=== PATIENT | female | born 1975 | race Caucasian/White ===

== ENCOUNTER → 2017-06-28 | Outpatient (CLI) | payer BC, OTHER ==
[2015-05-17 11:53] VITALS: BMI 28.2
[~2017-06-28] MED LIST: LACT1CAP74 PO; LOTE5GEL OP; MULT1TAB54 PO
[2017-06-28 09:19] LABS: PLATELET COUNT, AUTOMATED 571 K/uL (150-450)
[2017-06-28 10:39] LABS: LDL CHOLESTEROL 132 mg/dl
--- NOTE | 2017-06-28 15:08 | RADIOLOGY IMAGING REPORT ---
FACILITY: [facility] - [place], [place] PATIENT NAME: ELLIOT CROCKETT : [id number] MR: [id number] V: [id number] EXAM DATE: [id number] ORDERING PHYSICIAN: HANNAH CASTANO TECHNOLOGIST: Nadira Vance PROCEDURE:BILATERAL DIGITAL SCREENING MAMMOGRAM WITH CAD ASSISTED INTERPRETATION & 3D TOMOSYNTHESIS COMPARISON:None. INDICATIONS:baseline screening FINDINGS: Mildly heterogeneous fibroglandular tissue is seen throughout the breasts. There is a vague area of architectural distortion in the approximate 12 o'clock position of the Right breast for which Spot compression view is recommended. There is a nodular density in the upper outer quadrant of the Right breast as well for which Right breast Ultrasound is recommended. There is a vague nodular density in the lateral portion Left breast Zone 3 for which Spot compression view is recommended. DIAGNOSTIC CATEGORY 0--INCOMPLETE: NEED ADDITIONAL IMAGING EVALUATION. RECOMMENDATIONS: ADDITIONAL MAMMOGRAPHIC VIEWS REQUIRED: BILATERAL BREASTS. ULTRASOUND: RIGHT BREAST. IMPRESSION: BIRADS 0: Incomplete Spot compression views in both breasts as described above and Right breast Ultrasound is recommended for further evaluation. Dictated by: Martita Mckeon M.D. on 06/28/2017 at 11:17 Transcribed by: NIC on 06/28/2017 at 13:13 Approved by: Martita Mckeon M.D. on 06/28/2017 at 15:07 [facility]
== END ==
LOC: MAMO 03:25
PROVIDERS: ATTEND Physician Assistant
DX: Z12.31 Encounter for screening mammogram for malignant neoplasm of breast (principal); R92.2 Inconclusive mammogram; R53.83 Other fatigue; R73.01 Impaired fasting glucose; E78.4 Other hyperlipidemia
CPT/HCPCS: 36415; 77063; 77067; 82040; 82247; 82310; 82374; 82435; 82465; 82565; 82947; 83036; 83718; 84075; 84132; 84155; 84295; 84443; 84450; 84460; 84478; 84520; 85025

== ENCOUNTER → 2017-07-01 | Outpatient (CLI) | payer OTHER ==
[2015-05-17 11:53] VITALS: BMI 28.2
[2017-07-01 09:43] LABS: LDL CHOLESTEROL 126 mg/dl
--- NOTE | 2017-07-01 18:12 | RADIOLOGY IMAGING REPORT ---
FACILITY: [facility] PATIENT NAME: ELLIOT CROCKETT : [id number] MR: [id number] V: [id number] EXAM DATE: [id number] ORDERING PHYSICIAN: HANNAH CASTANO TECHNOLOGIST: Renuka Kate PROCEDURE:BILATERAL DIAGNOSTIC DIGITAL MAMMOGRAM WITH CAD ASSISTED INTERPRETATION & 3D TOMOSYNTHESIS COMPARISON:None. INDICATIONS:FURTHER EVAL FINDINGS: The patient returns for Spot compression views in the Right CC and MLO projection Left CC and Left XCC positions. The Spot compression view has revealed the bilateral areas of architectural distortion to be compressible and apparently represented summation shadows. There was no demonstration of malignant appearing mass or calcification in either breast. DIAGNOSTIC CATEGORY 2--BENIGN FINDING. RECOMMENDATIONS: ROUTINE MAMMOGRAM AND CLINICAL EVALUATION. IMPRESSION: BIRADS 2: Benign finding No significant abnormality is seen. Dictated by: Martita Mckeon M.D. on 07/01/2017 at 16:09 Transcribed by: NIC on 07/01/2017 at 16:19 Approved by: Martita Mckeon M.D. on 07/01/2017 at 18:11 [facility]
--- NOTE | 2017-07-02 08:19 | RADIOLOGY IMAGING REPORT ---
FACILITY: [facility] PATIENT NAME: ELLIOT CROCKETT : [id number] MR: [id number] V: [id number] EXAM DATE: [id number] ORDERING PHYSICIAN: HANNAH CASTANO TECHNOLOGIST: Milana Huang PROCEDURE:US RIGHT BREAST COMPLETE COMPARISON:None. INDICATIONS:FURTHER EVAL FINDINGS: In the 10 o'clock position of the Right breast approximately 10cm from the nipple is a fatty replaced lymph node measuring 1.5cm in length. In the 10 o'clock position Right breast 9cm from the nipple is a fatty replaced lymph node measuring 9mm in length. In the Right axilla there is a fatty replaced lymph node measuring 1.9cm in length. The inch mammary lymph nodes likely account for the mammographic findings. DIAGNOSTIC CATEGORY 2--BENIGN FINDING. RECOMMENDATIONS: ROUTINE MAMMOGRAM AND CLINICAL EVALUATION. IMPRESSION: BIRADS 2: Benign finding There are 2 inch mammary lymph nodes in the 10 o'clock position Right breast and 1 Right axillary lymph node likely accounting for the mammographic findings. Dictated by: Martita Mckeon M.D. on 07/01/2017 at 16:07 Transcribed by: NIC on 07/02/2017 at 8:10 Approved by: Martita Mckeon M.D. on 07/02/2017 at 8:18 [facility]
== END ==
LOC: MAMO 00:53
PROVIDERS: ATTEND Physician Assistant
DX: R92.2 Inconclusive mammogram (principal); E78.00 Pure hypercholesterolemia, unspecified
CPT/HCPCS: 36415; 77062; 77066; 82172; 82465; 83695; 83701; 83718; 84478; 86140

== ENCOUNTER → 2017-07-31 | Outpatient (REF) | payer OTHER ==
[2015-05-17 11:53] VITALS: BMI 28.2
== END ==
LOC: ZZSTITCHES 17:36
PROVIDERS: ATTEND Physician Assistant
DX: J02.9 Acute pharyngitis, unspecified (principal)
CPT/HCPCS: 87070

== ENCOUNTER 2017-11-26 10:37 | Emergency (ER) | payer BC, OTHER ==
[2015-05-17 11:53] VITALS: Wt 54.0 kg
[2017-11-26] MEDS ORDERED: ONDANSETRON 4 MG/2 ML VIAL ONE (10:50)
[2017-11-26] MEDS ORDERED: MORPHINE 4 MG/ML SDV IVP ONE ×2 (11:05→11:45)
[2017-11-26] MEDS ORDERED: NS(*) 0.9% 1000 ML BAG 1,000 ML IV ONE (11:05)
[2017-11-26 11:39] LABS: PLATELET COUNT, AUTOMATED 646 K/uL (150-450)
--- NOTE | 2017-11-26 13:09 | RADIOLOGY IMAGING REPORT ---
FACILITY: [facility] - [place] PATIENT NAME: Sanjuana Salinas : 1975 MR: [id number] V: [id number] EXAM DATE: ORDERING PHYSICIAN: GLENROY MISTRY TECHNOLOGIST: [place] [facility] [place] Sanju[place] Sal[place] : 1975 Visit/Account:[id number] Date of Sevice: 11/26/2017 ABDOMEN/PELVIS W/O CONTRAST HISTORY: hx pancreatitis, s/p whipple, epigastric pain TECHNIQUE: Axial images acquired through the abdomen/pelvis. Coronal and sagittal reformatting also performed. No IV contrast administered. Dose Lowering Technique One of the following dose optimization techniques was utilized in the performance of this exam: Autom ated exposure control; adjustment of the mA and/or kV according to the patient's size; or use of an i terative reconstruction technique. Specific details can be referenced in the facility's radiology C T exam operational policy. COMPARISON: MR the abdomen March 21, 2015 FINDINGS: Visualized lung bases: There is minimal linear scarring versus atelectasis in the inferior lateral l ingula Hepatobiliary: There are postsurgical changes from a cholecystectomy. 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 Vessels/spaces/nodes: There multiple iliac lymph nodes bilaterally. A field sales representative right common i liac lymph node measures 1.3 x 0.7 cm. A field sales representative right internal iliac lymph node measures 9 x 9 mm. A field sales representative right external iliac lymph node measures 1.6 x 0.8 cm Section [employer] Activities Clerk left common iliac lymph node measures 7 x 8 mm. . A field sales representative left external stephanie ac lymph node measures 1.3 x 0.9 cm. Bones/soft tissues: Negative. Additional findings: None pertinent. IMPRESSION: Since the previous study there is been resection of the distal body and tail the pancreas in addition to the spleen. There is postsurgical changes from a cholecystectomy Mild hepatomegaly 2 mm nonobstructing calculus lower pole calyx of the left kidney There are multiple iliac lymph nodes bilaterally. Most appear relatively small which may be reactive although clinical correlation needed Report Dictated By: Martita Mckeon MD at 11/26/2017 12:32 PM Report E-Signed By: Martita Mckeon MD at 11/26/2017 1:05 PM WSN:[id number]
--- NOTE | 2017-11-26 13:36 | ER Report ---
History and Physical Time Seen By MD: 10:45 Hx. 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 She presents after a trip to [facility] last week during which she states she ate out of her normal diet. She has had ongoing abdominal discomfort since this time located in the epigastric region. She states that symptoms became worse overnight during which she developed vomiting and has been unable to keep by mouth down at this point. Patient complains of severe epigastric pain that radiates to the back and feels like her prior pancreatitis. She took an oxycodone last night with some relief. REVIEW OF SYSTEMS: Constitutional: No fever, no chills. Eyes: No discharge. ENT: No sore throat. Cardiovascular: No chest pain, no palpitations. Respiratory: No cough, no shortness of breath. Gastrointestinal: above Genitourinary: no dysuria Musculoskeletal: abd pain radiates to back Skin: No rashes. Neurological: No headache. Remainder of the 14 system rev: Yes Allergies: Coded Allergies: diphenhydramine (Verified Allergy, Severe, ANAPHYLAXIS, 11/26/17) anaphlaxis hydromorphone (Verified Adverse Reaction, Severe, NAUSEA/VOMITING, 11/26/17) Uncoded Allergies: IV CONTRAST (Allergy, Mild, NAUSEA/VOMITING, 11/26/17) Home Meds Active Scripts Omeprazole (OMEPRAZOLE) 20 Mg Capsule.dr, 1 CAP PO BID for 30 Days, #60 CAP Prov:GLENROY MISTRY MD 11/26/17 Discontinued Reported Medications Lactobacillus Rhamnosus Gg (CULTURELLE) 1 Each Capsule, 1 EACH PO DAILY, CAPSULE 05/16/15 Multivitamin (MULTI-VITAMIN DAILY) 1 Each Tablet, 1 EACH PO 05/16/15 Loteprednol Etabonate (LOTEMAX) 5 Gm Gel..gram., 5 GM OP BIWEEKLY 03/25/15 Hx Smoking: Yes (3 CIGARETTES PER WEEK) Smoking Status: Current: Every Day Smoker Hx Substance Use Disorder: No Constitutional Vital Sign - Last 24 Hours 11/26/17 11/26/17 11/26/17 11/26/17 10:37 10:41 10:42 11:07 Temp 97.8 Pulse 99 99 82 Resp 18 B/P (MAP) 138/99 (112) 138/99 Pulse Ox 94 94 97 O2 Delivery Room Air Room Air Room Air 11/26/17 11/26/17 11/26/17 11/26/17 11:13 11:30 11:34 11:39 Pulse 88 71 B/P (MAP) 112/74 (87) 123/85 (98) Pulse Ox 93 93 O2 Delivery Room Air Room Air 11/26/17 11/26/17 11/26/17 11/26/17 12:06 12:09 12:30 12:44 Pulse 92 79 B/P (MAP) 103/71 (82) 109/59 (76) Pulse Ox 96 96 O2 Delivery Room Air Room Air 11/26/17 11/26/17 11/26/17 11/26/17 13:00 13:30 13:35 13:40 Pulse 79 71 B/P (MAP) 110/83 (92) 122/99 (107) Pulse Ox 94 95 O2 Delivery Room Air Room Air 11/26/17 11/26/17 11/26/17 11/26/17 14:00 14:10 14:15 14:30 Pulse 78 76 B/P (MAP) 110/58 (75) 99/67 (78) Pulse Ox 98 98 O2 Delivery Room Air Room Air 11/26/17 11/26/17 11/26/17 11/26/17 14:45 15:00 15:15 15:26 Pulse 68 66 77 B/P (MAP) 112/78 (89) Pulse Ox 94 94 94 O2 Delivery Room Air Room Air Room Air Physical Exam General Appearance: [The patient is alert, has no immediate need for airway protection and no signs of toxicity.] [ she is tearful, standing, and hunched over gurney] Eyes: Pupils equal and round no pallor or injection. ENT, Mouth: Mucous membranes are moist. Respiratory: There are no retractions, lungs are clear to auscultation. Cardiovascular: Regular rate and rhythm. Gastrointestinal: Abdomen is soft and non tender, no masses, bowel sounds normal. Neurological: alert, oriented, nad Skin: Warm and dry, no rashes. Musculoskeletal: Neck is supple non tender. Extremities are nontender, nonswollen and have full range of motion. DIFFERENTIAL DIAGNOSIS: After history and physical exam differential diagnosis was considered for pancreatitis, complication of PUD, gastritis, reformed gall stone, kidney stone, hemorrhage, or other emergent etiology Medical Decision Making Data Points Result Diagram: 11/26/17 1048 11/26/17 1048 Laboratory Hematology Test 11/26/17 10:48 11/26/17 12:05 Red Blood Count 5.19 M/uL (4.17-5.56) Mean Corpuscular Volume 91.1 fL (80.0-96.0) Mean Corpuscular Hemoglobin 31.5 pg (26.0-33.0) Mean Corpuscular Hemoglobin Concent 34.5 g/dL (32.0-36.0) Red Cell Distribution Width 12.4 % (11.5-14.5) Mean Platelet Volume 8.6 fL (7.2-11.1) Neutrophils (%) (Auto) 65.2 % (39.4-72.5) Lymphocytes (%) (Auto) 27.4 % (17.6-49.6) Monocytes (%) (Auto) 6.4 % (4.1-12.4) Eosinophils (%) (Auto) 0.3 % (0.4-6.7) Basophils (%) (Auto) 0.7 % (0.3-1.4) Nucleated RBC Relative Count (auto) 0.1 /100WBC Neutrophils # (Auto) 9.0 K/uL (2.0-7.4) Lymphocytes # (Auto) 3.8 K/uL (1.3-3.6) Monocytes # (Auto) 0.9 K/uL (0.3-1.0) Eosinophils # (Auto) 0.0 K/uL (0.0-0.5) Basophils # (Auto) 0.1 K/uL (0.0-0.1) Nucleated RBC Absolute Count (auto) 0.01 K/uL Peripheral Blood Smear Yes Y/N Sodium Level 141 mmol/L (137-145) Potassium Level 4.0 mmol/L (3.5-5.0) Chloride Level 101 mmol/L (98-107) Carbon Dioxide Level 23 mmol/L (22-31) Blood Urea Nitrogen 10 mg/dl (7-18) Creatinine 0.60 mg/dl (0.52-1.04) Glomerular Filtration Rate Calc > 60.0 Random Glucose 101 mg/dl (75-110) Calcium Level 9.9 mg/dl (8.4-10.2) Total Bilirubin 1.0 mg/dl (0.2-1.3) Aspartate Amino Transf (AST/SGOT) 18 U/L (0-35) Alanine Aminotransferase (ALT/SGPT) 24 U/L (0-56) Alkaline Phosphatase 54 U/L (0-126) Total Protein 9.8 g/dl (6.3-8.2) Albumin 5.3 g/dl (3.5-5.0) Lipase 100 U/L (23-300) Urine Color Straw Urine Clarity Clear Urine pH 6.0 pH (4.8-9.5) Urine Specific [place] 1.006 Urine Protein Negative mg/dL (NEGATIVE) Urine Glucose (UA) Negative mg/dL (NEGATIVE) Urine Ketones Negative mg/dL (NEGATIVE) Urine Blood Negative (NEGATIVE) Urine Nitrite Negative (NEGATIVE) Urine Bilirubin Negative (NEGATIVE) Urine Urobilinogen Negative mg/dL (0.2-1.9) Urine Leukocyte Esterase Negative (NEGATIVE) Urine RBC None /HPF (0-2/HPF) Urine WBC <1 /HPF (0-5/HPF) Urine Squamous Epithelial Cells None /LPF (</=FEW) Urine Bacteria Few /HPF (NONE-FEW) Urine Mucus None /HPF (NONE-FEW) Urine HCG, Qualitative Negative (NEGATIVE) Chemistry Test 11/26/17 10:48 11/26/17 12:05 White Blood Count 13.9 k/uL (4.5-11.0) Red Blood Count 5.19 M/uL (4.17-5.56) Hemoglobin 16.3 g/dL (12.0-16.0) Hematocrit 47.3 % (34.0-47.0) Mean Corpuscular Volume 91.1 fL (80.0-96.0) Mean Corpuscular Hemoglobin 31.5 pg (26.0-33.0) Mean Corpuscular Hemoglobin Concent 34.5 g/dL (32.0-36.0) Red Cell Distribution Width 12.4 % (11.5-14.5) Platelet Count 646 K/uL (150-450) Mean Platelet Volume 8.6 fL (7.2-11.1) Neutrophils (%) (Auto) 65.2 % (39.4-72.5) Lymphocytes (%) (Auto) 27.4 % (17.6-49.6) Monocytes (%) (Auto) 6.4 % (4.1-12.4) Eosinophils (%) (Auto) 0.3 % (0.4-6.7) Basophils (%) (Auto) 0.7 % (0.3-1.4) Nucleated RBC Relative Count (auto) 0.1 /100WBC Neutrophils # (Auto) 9.0 K/uL (2.0-7.4) Lymphocytes # (Auto) 3.8 K/uL (1.3-3.6) Monocytes # (Auto) 0.9 K/uL (0.3-1.0) Eosinophils # (Auto) 0.0 K/uL (0.0-0.5) Basophils # (Auto) 0.1 K/uL (0.0-0.1) Nucleated RBC Absolute Count (auto) 0.01 K/uL Peripheral Blood Smear Yes Y/N Glomerular Filtration Rate Calc > 60.0 Calcium Level 9.9 mg/dl (8.4-10.2) Total Bilirubin 1.0 mg/dl (0.2-1.3) Aspartate Amino Transf (AST/SGOT) 18 U/L (0-35) Alanine Aminotransferase (ALT/SGPT) 24 U/L (0-56) Alkaline Phosphatase 54 U/L (0-126) Total Protein 9.8 g/dl (6.3-8.2) Albumin 5.3 g/dl (3.5-5.0) Lipase 100 U/L (23-300) Urine Color Straw Urine Clarity Clear Urine pH 6.0 pH (4.8-9.5) Urine Specific [place] 1.006 Urine Protein Negative mg/dL (NEGATIVE) Urine Glucose (UA) Negative mg/dL (NEGATIVE) Urine Ketones Negative mg/dL (NEGATIVE) Urine Blood Negative (NEGATIVE) Urine Nitrite Negative (NEGATIVE) Urine Bilirubin Negative (NEGATIVE) Urine Urobilinogen Negative mg/dL (0.2-1.9) Urine Leukocyte Esterase Negative (NEGATIVE) Urine RBC None /HPF (0-2/HPF) Urine WBC <1 /HPF (0-5/HPF) Urine Squamous Epithelial Cells None /LPF (</=FEW) Urine Bacteria Few /HPF (NONE-FEW) Urine Mucus None /HPF (NONE-FEW) Urine HCG, Qualitative Negative (NEGATIVE) Urinalysis Test 11/26/17 12:05 Urine Color Straw Urine Clarity Clear Urine pH 6.0 pH (4.8-9.5) Urine Specific [place] 1.006 Urine Protein Negative mg/dL (NEGATIVE) Urine Glucose (UA) Negative mg/dL (NEGATIVE) Urine Ketones Negative mg/dL (NEGATIVE) Urine Blood Negative (NEGATIVE) Urine Nitrite Negative (NEGATIVE) Urine Bilirubin Negative (NEGATIVE) Urine Urobilinogen Negative mg/dL (0.2-1.9) Urine Leukocyte Esterase Negative (NEGATIVE) Urine RBC None /HPF (0-2/HPF) Urine WBC <1 /HPF (0-5/HPF) Urine Squamous Epithelial Cells None /LPF (</=FEW) Urine Bacteria Few /HPF (NONE-FEW) Urine Mucus None /HPF (NONE-FEW) Urine HCG, Qualitative Negative (NEGATIVE) ED Course/Re-evaluation ED Course Pt presents with epigastric pain similar to prior pancreatitis, prior to whipple; pt ultimately improves after gi cocktail and given bloodwork and pt's improvement, consider gastritis/pud as potential etiology. I attempted to call pt's surgeon, Dr. Amos, but he was not available. I discussed further with pt who has significant pain relief and would like to go home at this point. As CT / labs are unremarkable for acute findings and rpt exam shows no acute abdomen, this is reasonable; will f/u with primary doctor. Pt understands strict rtn precautions. Decision to Disposition Date: Nov 26, 2017 Decision to Disposition Time: 15:15 Depart Departure Latest Vital Signs Vital Signs Date Time Temp Pulse Resp B/P (MAP) Pulse Ox O2 Delivery O2 Flow Rate FiO2 11/26/17 15:26 77 94 Room Air 11/26/17 15:00 112/78 (89) 11/26/17 10:42 97.8 18 Impression: Primary Impression: Abdominal pain Condition: Improved Disposition: HOME OR SELF-CARE Referrals: HANNAH CASTANO PA-C (PCP) ULISES AMOS MD 5 Days New Scripts Omeprazole (OMEPRAZOLE) 20 Mg Capsule. 1 CAP PO BID for 30 Days, #60 CAP Prov: GLENROY MISTRY MD 11/26/17 Patient Instructions: Abdominal Pain (ED), Gastritis (ED) Additional Instructions: As we discussed, call Dr. Amos for follow up or return immediately for uncontrolled symptoms or any concerns. In addition to omeprazole daily you may by maalox or similar medication for intermittent pain. Problem Qualifiers Primary Impression: Abdominal pain Abdominal location: epigastric Qualified Codes: R10.13 - Epigastric pain GLENROY MISTRY MD Nov 26, 2017 13:36
[2017-11-26] MEDS ORDERED: LIDOCAINE 2% VISC SLN 15ML UDC PO ONE (13:40)
[2017-11-26] MEDS ORDERED: MAG HYD/AL HYD/SIMETH 30ML UDC PO ONE (13:40)
[2017-11-26] MEDS ORDERED: ONDANSETRON 4 MG/2 ML VIAL IVP ONE (13:40)
[2017-11-26 15:00] VITALS: BP 112/78
[2017-11-26] MEDS ORDERED: OMEP-125 PO (15:09)
== END 2017-11-26 15:33 | disposition home or self-care (01) ==
LOC: ER 10:48
DX: R10.13 Epigastric pain (principal); F17.210 Nicotine dependence, cigarettes, uncomplicated
CPT/HCPCS: 74176; 81001; 81025; 83690; 85025; 96361; 96374; 96375; 96376; 99284; J2270; J2405; J7030; 82040; 82247; 82310; 82374; 82435; 82565; 82947; 84075; 84132; 84155; 84295; 84450; 84460; 84520

== ENCOUNTER → 2018-04-21 | Outpatient (CLI) | payer BC ==
[2015-05-17 11:53] VITALS: BMI 28.2
[~2018-04-21] MED LIST changes: +OMEP-125 PO
== END ==
LOC: LAB 08:14
PROVIDERS: ATTEND Physician Assistant
DX: R73.01 Impaired fasting glucose (principal)
CPT/HCPCS: 36415; 82465; 83036; 83718; 84478

== ENCOUNTER → 2018-08-12 | Outpatient (CLI) | payer BC ==
[2015-05-17 11:53] VITALS: BMI 28.2
[~2018-08-12] MED LIST changes: -OMEP-125 PO; +OMEP-126 PO
--- NOTE | 2018-08-15 09:34 | RADIOLOGY IMAGING REPORT ---
FACILITY: [facility] - [place] PATIENT NAME: ELLIOT CROCKETT : [id number] MR: [id number] V: [id number] EXAM DATE: [id number] ORDERING PHYSICIAN: HANNAH CASTANO TECHNOLOGIST: Nadira Vance PROCEDURE: BILATERAL DIGITAL SCREENING MAMMOGRAM WITH CAD ASSISTED INTERPRETATION & 3D TOMOSYNTHESIS REASON FOR STUDY: Screening. FAMILY HISTORY OF BREAST CANCER: Paternal grandmother. BREAST PROCEDURES/TREATMENTS: None. COMPARISON: 07/01/17, 06/28/17. VIEWS OBTAINED: 2D & 3D full field CC & MLO. BREAST DENSITY: There are scattered areas of fibroglandular density throughout the breasts. MAMMOGRAM FINDINGS: The parenchymal pattern has remained stable allowing for difference in mammographic technique & patient positioning. IMPRESSION: BIRADS 1: Negative. DIAGNOSTIC CATEGORY 1--NEGATIVE. RECOMMENDATIONS: ROUTINE MAMMOGRAM AND CLINICAL EVALUATION. Dictated by: Martita Mckeon M.D. on 08/12/2018 at 14:48 Transcribed by: NIC on 08/15/2018 at 8:25 Approved by: Martita Mckeon M.D. on 08/15/2018 at 9:33 [facility]
== END ==
LOC: MAMO 00:56
PROVIDERS: ATTEND Physician Assistant
DX: Z12.31 Encounter for screening mammogram for malignant neoplasm of breast (principal)
CPT/HCPCS: 77063; 77067